=== PATIENT | male | born 1970 | race Hispanic/Latino ===

== ENCOUNTER 2022-12-08 10:16 | Emergency (ER) | payer SELFPAY ==
[~2022-12-08] VITALS: Ht 177.8 cm; Wt 86.2 kg
[2022-12-08] MEDS ORDERED: OFLOXACIN5 ML OT (10:52)
[2022-12-08] MEDS ORDERED: FLUORESCEIN SOD(OPTH) 1 MG STRP OP ONE (11:00)
[2022-12-08] MEDS ORDERED: TETRACAINE HCL 0.5% OPTH SOLN 4 ML BTL OP ONE (11:00)
== END 2022-12-08 11:30 | disposition home or self-care (01) ==
LOC: ER 10:40
DX: H11.32 Conjunctival hemorrhage, left eye (principal); W22.8XXA Striking against or struck by other objects, initial encounter; Y99.0 Civilian activity done for income or pay
CPT/HCPCS: 99283